=== PATIENT | male | born 1960 | race Caucasian/White ===

== ENCOUNTER 2017-02-21 13:32 | Emergency (ER) | payer SELFPAY ==
[~2017-02-21] VITALS: Ht 188 cm; Wt 79.4 kg
[2017-02-21 13:52] VITALS: BP 135/87
== END 2017-02-21 18:34 | disposition left against medical advice (07) ==
LOC: ER 13:32
DX: H92.03 Otalgia, bilateral (principal); H91.93 Unspecified hearing loss, bilateral; Z53.21 Procedure and treatment not carried out due to patient leaving prior to being seen by health care provider